=== PATIENT | female | born 2000 | race Two or more races ===

== ENCOUNTER 2024-06-17 08:06 | Outpatient (RCR) | payer MEDICAID, SELFPAY ==
[2024-06-10 08:47] VITALS: BP 142/85; PULSE 86; RESP 17; TEMP 36.8; O2SAT 99; BMI 37.4
[2024-06-10] MEDS: ferumoxytoL (NON-ESRD) 510 MG in SODIUM CHLORIDE 0.9% 100 ML 234 MG IV (09:39)
[2024-06-10 10:39] VITALS: BP 134/87; PULSE 90; RESP 16; TEMP 36.6; O2SAT 99
[2024-06-17 08:24] VITALS: BP 125/76; PULSE 89; RESP 16; TEMP 36.6; O2SAT 99; BMI 38.6
--- NOTE | 2024-06-17 08:25 | CHAP ---
Patient expressed gratitude for prayer before their procedure
[2024-06-17] MEDS: ferumoxytoL (NON-ESRD) 510 MG in SODIUM CHLORIDE 0.9% 100 ML 234 MG IV (08:52)
[2024-06-17 09:48] VITALS: BP 117/77; PULSE 90; RESP 17; TEMP 36.6; O2SAT 99
== END 2024-07-05 23:59 | disposition home or self-care (01) ==
LOC: SFLEX 08:06
PROVIDERS: PCP Family Medicine; Referring Provider Obstetrics & Gynecology; Visit Provider Obstetrics & Gynecology
PROC: (CPT 96365; principal; 2024-06-10 08:30)
DX: O99.019 Anemia complicating pregnancy, unspecified trimester (principal); D50.9 Iron deficiency anemia, unspecified
CPT/HCPCS: 96365; J7050; Q0138